=== PATIENT | female | born 1980 | race Caucasian/White ===

== ENCOUNTER 2019-07-13 21:20 | Emergency (ER) | payer MEDICAID ==
[~2019-07-13] VITALS: Ht 162.6 cm; Wt 176.4 kg
[2019-07-13 21:35] VITALS: BP 124/81
--- NOTE | 2019-07-13 21:38 | NUR ---
TO LOBBY A/W BED AMBULATORY
--- NOTE | 2019-07-13 22:30 | NUR ---
PATIENT LEFT WITHOUT BEING SEEN BY DR. SALAZAR. NO FURTHER CARE PROVIDED FOR PATIENT.
== END 2019-07-13 22:30 | disposition left against medical advice (07) ==
LOC: MED 21:20
DX: R03.0 Elevated blood-pressure reading, without diagnosis of hypertension (principal); Z53.21 Procedure and treatment not carried out due to patient leaving prior to being seen by health care provider